=== PATIENT | male | born 1985 | race Caucasian/White ===

== ENCOUNTER 2017-01-02 14:50 | Inpatient (IN) | payer SELFPAY ==
[~2017-01-02] VITALS: Ht 182.9 cm; Wt 82.5 kg
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
[2017-01-02] MEDS ORDERED: 0.9% Sodium Chloride 1,000 ML IV ONE (14:58)
[2017-01-02] MEDS ORDERED: Ondansetron 2 mg/mL 2 mL Inj IVPUSH PRN ×2 (15:00→18:15)
[2017-01-02 15:16] LABS: BASOPHILS % (AUTO) 0.1 % (0-3); EOSINOPHILS % (AUTO) 0.3 % (0-5); MONOCYTES % (AUTO) 6.8 % (4-12); Mean Corpuscular Hemoglobin 29.8 pg (27.0-35.0); Mean Corpuscular Volume 88.7 fL (81-100); NEUTROPHILS % (AUTO) 83.5 % (40-74); Platelet Count 189 bil/L (150-400)
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
[2017-01-02] MEDS: HYDROmorphone 1 mg/mL Inj IVPUSH PRN ×3 (15:31→17:28)
[2017-01-02] MEDS ORDERED: GLUC100016 PO (15:38)
[2017-01-02] MEDS ORDERED: CALC600T12 PO (15:38)
[2017-01-02] MEDS ORDERED: CHOL100045 PO (15:38)
[2017-01-02 15:41] LABS: INR 1.05 ratio
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
[2017-01-02] MEDS ORDERED: GLUC-120 PO (18:05)
[2017-01-02] MEDS ORDERED: Dextrose 5% 500 ML IV SCH (18:15)
[2017-01-02] MEDS ORDERED: Polyethylene Glycol (PEG) 17 Gm Powder PO ONE (18:15)
[2017-01-02] MEDS ORDERED: diphenhydrAMINE 25 mg Capsule PO PRN (18:15)
[2017-01-02] MEDS ORDERED: HYDROmorphone PCA 0.2 mg/mL 30 mL Inj IV PRN (18:15)
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
[2017-01-02 20:05] VITALS: BP 133/73; PULSE 98; RESP 18; O2SAT 100
[2017-01-02 20:10] LABS: APPEARANCE,URINE CLEAR (CLEAR,HAZY); COLOR,URINE YELLOW (YELLOW); OCCULT BLOOD,URINE TRACE (NEGATIVE); UROBILINOGEN,URINE NORMAL (NORMAL)
[2017-01-02 20:27] VITALS: RESP 16; O2SAT 97
[2017-01-02 22:31] VITALS: RESP 16; O2SAT 97
[2017-01-02] MEDS ORDERED: .Epic Conversion Completed XX PRN (22:55)
[2017-01-02 23:55] VITALS: RESP 16; O2SAT 97
[2017-01-02 23:59] VITALS: BP 133/76; PULSE 91; RESP 18; O2SAT 100
== END 2017-01-03 01:29 | disposition admitted as inpatient to this hospital (09) | DRG 951 ==
LOC: SED 14:50 → UNDOADMIN 17:58 → OSC 17:58
PROVIDERS: ADMIT Surgery; ATTEND Surgery
DX: R69 Illness, unspecified (principal)